=== PATIENT | female | born 1990 | race African-American/Black ===

== ENCOUNTER 2023-11-17 12:02 | Observation (INO) | payer MEDICAID, SELFPAY ==
[2023-11-17] VITALS (15 sets, daily range): BP systolic 104–146; BP diastolic 74–98; PULSE 58–84; RESP 13–21; TEMP 36.1–36.6; O2SAT 100; BMI 22.3
--- NOTE | ~2023-11-17 | XR_ITS ---
EXAMINATION: XR chest 2V DATE: 11/17/2023 13:20 INDICATION: Chest pain. TECHNIQUE: Frontal and lateral views of the chest were obtained. COMPARISON: None. FINDINGS: There is no pneumonia, pleural effusion, or pneumothorax. The heart size is normal. Surgica l clips in the right upper quadrant are likely from cholecystectomy. IMPRESSION: 1. No acute cardiopulmonary disease. Reviewed, dictated and finalized at location E. RUBBER MIXER
--- NOTE | 2023-11-17 12:04 | ECG_ITS ---
Measurements Intervals [place] Rate: 89 P: -47 IN: 138 QRS: 66 QRSD: 82 T: 23 QT: 343 QTc: 419 Interpretive Statements ECTOPIC ATRIAL RHYTHM ST ELEVATION CONSISTENT WITH INJURY, PERICARDITIS, OR EARLY REPOLARIZATION [ST ELEVATION W/O NORMALLY INFLECTED T WAVE] NONSPECIFIC ST & T-WAVE ABNORMALITY NO PREVIOUS ECG AVAILABLE FOR COMPARISON Electronically Signed On 11-17-2023 16:06:38 STREETCAR OPERATOR by Marleen Chavez M.D.
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
[2023-11-17 12:29] LABS: Basophils Percent Auto 0.7 % (0.2-1.2); Eosinophils Absolute Auto 0.2 K/mm3 (0-0.3); Eosinophils Percent Auto 3.3 % (0-4.4); Hematocrit 42.8 % (37.0-47.0); Hemoglobin 13.3 g/dL (12.0-15.0); Immature Granulocyte Absolute 0.01 K/mm3 (0.00-0.031); Immature Granulocyte Percent A 0.2 % (0-0.5); Lymphocytes Absolute Auto 1.87 K/mm3 (0.9-3.2); Lymphocytes Percent Auto 41.7 % (18.3-44.2); Mean Corpuscular HGB Conc 31.1 g/dl (32-36); Mean Corpuscular Hemoglobin 27.7 pg (26-34); Mean Platelet Volume 10.8 fl (7.4-10.4); Monocytes Absolute Auto 0.4 K/mm3 (0.1-0.6); Monocytes Percent Auto 9.8 % (2.6-8.5); Neutrophils Percent Auto 44.3 % (45.5-73.1); Platelet Count Result 337 k/mm3 (150-375); Red Blood Count 4.81 M/mm3 (4.2-5.4); Red Cell Distribution Width 14.3 % (11.5-14.5); White Blood Count 4.5 K/mm3 (4.5-10.0)
--- NOTE | 2023-11-17 12:34 | ECG_ITS ---
Measurements Intervals [place] Rate: 72 P: 58 SD: 160 QRS: 57 QRSD: 92 T: 38 QT: 389 QTc: 426 Interpretive Statements SINUS RHYTHM COMPARED TO ECG 11/17/2023 12:12:18 SINUS RHYTHM NOW PRESENT Electronically Signed On 11-17-2023 16:07:23 BASEBALL GLOVE SHAPER by Marleen Chavez M.D.
[2023-11-17 12:39] LABS: Alanine Aminotransferase 14 U/L (6-35); Albumin Level 4.3 g/dL (3.5-5.1); Alkaline Phosphatase 69 U/L (38-126); Anion Gap 9 mmol/L (8-16); Aspartate Amino Transferase 26 U/L (14-36); Bilirubin,Total 0.5 mg/dL (0.2-1.3); Blood Urea Nitrogen 6 mg/dL (7-17); Calcium 9.5 mg/dL (8.4-10.2); Carbon Dioxide 24 mmol/L (22-30); Chloride 107 mmol/L (98-107); Estimated CRCL calculation 96 ml/min; Estimated Glomerular Filt Rate > 60; Glucose 98 mg/dL (65-110); Lipase 83 U/L (23-300); Potassium 3.6 mmol/L (3.4-5.0); Sodium 140 mmol/L (137-145)
[2023-11-17] MEDS: ASPIRIN 81 MG CHEWABLE TABLET 324 MG PO (12:39)
[2023-11-17 12:41] LABS: Partial Thromboplastin Time 24.6 SECONDS (22.3-36.8)
[2023-11-17 12:50] LABS: Troponin I < 0.012 ng/mL (0.000-0.034)
[2023-11-17 14:26] LABS: Influenza A QL RT-PCR Negative (Negative); Influenza B QL RT-PCR Negative (Negative); RSV RNA, RT-PCR Negative (Negative); SARS-CoV-2 RNA PCR Negative (Negative)
[2023-11-17 15:01] LABS: Erythrocyte Sedimentation Rate 17 mm/hr (0-20)
--- NOTE | 2023-11-17 15:30 | ECG_ITS ---
Measurements Intervals [place] Rate: 59 P: 60 ID: 183 QRS: 66 QRSD: 90 T: 48 QT: 430 QTc: 426 Interpretive Statements SINUS BRADYCARDIA COMPARED TO ECG 11/17/2023 12:42:04 SINUS BRADYCARDIA NOW PRESENT Electronically Signed On 11-17-2023 16:09:59 QUALITY ASSURANCE QA LAB ANALYST by Marleen Chavez M.D.
[2023-11-17 16:39] LABS: Troponin I < 0.012 ng/mL (0.000-0.034)
--- NOTE | 2023-11-17 18:00 | ADMGEN ---
This patient, Tootie Meier, was admitted to IMU Room 202-. Patient/family oriented to hospital policies and general routines including ID bracelet, bed and alarms, visiting hours, pain management, procedures, bathroom and other care routines, personal items, smoking policy, room service/diet, and visiting hours. Information on how to activate the Rapid Response Team has been discussed. Patient/Family are encouraged to report perceived risks to care and to ask questions if they do not understand what they are told or what they should do.
[2023-11-17 18:47] LABS: Troponin I < 0.012 ng/mL (0.000-0.034)
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
[2023-11-17] MEDS: ACETAMINOPHEN 325 MG TABLET 650 MG PO (20:28)
[2023-11-17] MEDS: COLCHICINE 0.6 MG TABLET PO (20:28)
[2023-11-17 21:05] LABS: Troponin I < 0.012 ng/mL (0.000-0.034)
[2023-11-17] MEDS: ALPRAZolam (*CRX) 0.125 MG TABLET PO (23:38)
[2023-11-18] VITALS (15 sets, daily range): BP systolic 116–144; BP diastolic 73–92; PULSE 61–105; RESP 16–20; TEMP 36.4–37; O2SAT 98–100
--- NOTE | 2023-11-18 | ECHO_ITS ---
Patient Info Name: Tootie Meier Age: 33 years : 1990 Gender: Female Ht: 67 in Wt: 163 lbs BSA: 1.88 m2 HR: 66 bpm BP: 116 / 77 mmHg Heart Rhythm: Sinus Rhythm Technical Quality: Good Exam Date: 11/18/2023 12:01 PM Exam Location: Echo Lab Patient Status: Inpatient Admit Date: 11/17/2023 Staff Ordering Physician: Marleen Chvaez MD (yarelis/nanda) Practical Nursing Faculty: Ritika Huggins RDCS Attending Provider: Blade Flores MD Referring Physician: Scott LENTZ; Exam Type: CA echo doppler color flow Study Info Indications R07.9 - Chest pain, unspecified Complete two-dimensional, color flow and Doppler transthoracic echocardiogram is performed. Summary 1. Complete two-dimensional, color flow and Doppler transthoracic echocardiogram is performed. 2. Left ventricular chamber dimension is normal. 3. Left ventricular systolic function is normal, estimated at 60-65%. 4. Right ventricular systolic function is normal. 5. There is no pericardial effusion. Left Ventricle Left ventricular chamber dimension is normal. Left ventricular systolic function is normal, estimated at 60-65%. There is no increased left ventricular wall thickness. Right Ventricle Right ventricular chamber dimension is normal. Right ventricular systolic function is normal. Left Atria Left atrial chamber dimension is normal. Right Atria Right atrial chamber dimension is normal. Atrial Septum Intact interatrial septum visualized by color flow imaging. Aortic Valve The aortic valve is probable trileaflet. There is no aortic valve stenosis. There is no aortic valve regurgitation. Pulmonic Valve The pulmonic valve is not well visualized. Mitral Valve There is no mitral valve regurgitation. Tricuspid Valve There is no tricuspid valve regurgitation. Pericardium/Pleural There is no pericardial effusion. Inferior Vena Cava Normal inferior vena cava with <50% collapse upon inspiration consistent with elevated right atrial pressure, 8 mmHg. Aorta The aortic root size at the sinus of Valsalva is normal. Left Ventricular Outflow Tract Name Value Normal LVOT 2D LVOT Diameter 2.0 cm LVOT Doppler LVOT Peak Gradient 3 mmHg LVOT Mean Gradient 1 mmHg LVOT VTI 15 cm LVOT VTI/AV VTI Ratio 0.5 LVOT Stroke Volume 45 ml LVOT CO 2.9 l/min LVOT CI 1.6 l/min/m2 Pulmonic Valve Name Value Normal RVOT Doppler RVOT Peak Gradient 2 mmHg PV Doppler PV Peak Gradient 5 mmHg Mitral Valve Name Value Normal
[2023-11-18 05:09] LABS: Hematocrit 37.5 % (37.0-47.0); Hemoglobin 11.9 g/dL (12.0-15.0); Mean Corpuscular HGB Conc 31.7 g/dl (32-36); Mean Corpuscular Volume 88.2 fl (80-100); Platelet Count Result 305 k/mm3 (150-375); Red Blood Count 4.25 M/mm3 (4.2-5.4); White Blood Count 4.3 K/mm3 (4.5-10.0)
[2023-11-18 05:21] LABS: Anion Gap 8 mmol/L (8-16); Blood Urea Nitrogen 6 mg/dL (7-17); Calcium 8.8 mg/dL (8.4-10.2); Carbon Dioxide 23 mmol/L (22-30); Chloride 107 mmol/L (98-107); Estimated CRCL calculation 96 ml/min; Estimated Glomerular Filt Rate > 60; Glucose 91 mg/dL (65-110); Magnesium 2.1 mg/dL (1.6-2.3); Potassium 3.1 mmol/L (3.4-5.0); Sodium 138 mmol/L (137-145)
[2023-11-18 05:55] LABS: Beta HCG Quantitative < 2.39 mIU/ML
--- NOTE | 2023-11-18 09:22 | PM.IMPN ---
Progress Note: A&P Assessment and Plan (1) Pericarditis: Code(s): I31.9 - Disease of pericardium, unspecified Status: Acute Assessment and Plan: Appreciate cardiology consultation, started on ibuprofen and colchicine 11/17 (2) Chest pain: Code(s): R07.9 - Chest pain, unspecified Status: Acute Assessment and Plan: Likely secondary to viral pericarditis, however, ppi added due to possible dyspepsia contributing to chest pain (3) Abnormal EKG: Code(s): R94.31 - Abnormal electrocardiogram [ECG] [EKG] Status: Acute (4) Recent upper respiratory tract infection: Code(s): J06.9 - Acute upper respiratory infection, unspecified Status: Acute Assessment and Plan: Resolving, unsure of specific etiology Plan DVT prophylaxis with SCDs GI prophylaxis with PPI Code status full code Subjective Date/time seen: 11/18/23 09:22 Interval history: 33-year-old female with no significant past medical history is presenting with evaluation for chest pain thought to be secondary to viral pericarditis. No overnight events noted. No chest pain or shortness of breath. No nausea, vomiting or diarrhea. No fevers or chills. Patient states she feels much better today. Review of Systems Review of Systems: 12 point review of systems was assessed and was negative except as noted in the HPI Exam Narrative: General: No acute distress, alert and oriented per baseline HEENT: Atraumatic, normocephalic, mucous membranes moist CV: Regular rate and rhythm, S1, S2 Lungs: Clear to auscultation bilaterally, no rales or crackles noted, no wheezes, good air entry Abdomen: Soft, nontender, nondistended Extremities: Normal to inspection Skin: No rashes noted, no lesions or wounds seen Psych: Euthymic, normal affect Objective Data Vital Signs Vital Signs: Vital Signs - 24 hr 11/17/23 12:16 11/17/23 12:30 11/17/23 12:16 Temperature 97.6 F Pulse Rate 84 73 Respiratory Rate 20 16 Blood Pressure 127/87 104/85 Pulse Oximetry 100 100 Oxygen Delivery Room Air Room Air 11/17/23 12:30 11/17/23 13:00 11/17/23 13:01 Temperature Pulse Rate 73 65 61 Respiratory Rate 18 16 16 Blood Pressure 104/85 124/81 124/81 Pulse Oximetry 100 100 100 Oxygen Delivery 11/17/23 14:03 11/17/23 15:08 11/17/23 15:09 Temperature Pulse Rate 63 75 65 Respiratory Rate 15 21 H 13 Blood Pressure 130/78 135/96 H 135/96 H Pulse Oximetry 100 100 100 Oxygen Delivery 11/17/23 15:31 11/17/23 16:45 11/17/23 17:18 Temperature Pulse Rate 65 58 L 60 Respiratory Rate 14 15 16 Blood Pressure 146/98 H 122/90 122/90 Pulse Oximetry 100 100 100 Oxygen Delivery 11/17/23 17:59 11/17/23 18:00 11/17/23 18:00 Temperature 98 F Pulse Rate 61 75 Respiratory Rate 18 Blood Pressure 129/94 H Pulse Oximetry 100 Oxygen Delivery Room Air 11/17/23 19:41 11/17/23 20:00 11/17/23 22:00 Temperature 97.0 F L Pulse Rate 66 62 69 Respiratory Rate 18 Blood Pressure 142/74 H Pulse Oximetry 100 Oxygen Delivery 11/17/23 20:00 11/18/23 00:00 11/18/23 00:00 Temperature 97.8 F Pulse Rate 62 85 65 Respiratory Rate 18 20 Blood Pressure 144/92 H Pulse Oximetry 100 98 Oxygen Delivery Room Air 11/18/23 00:00 11/18/23 02:00 11/18/23 04:00 Temperature Pulse Rate 65 65 76 Respiratory Rate 20 Blood Pressure Pulse Oximetry 98 Oxygen Delivery Room Air 11/18/23 04:12 11/18/23 06:00 11/18/23 04:00 Temperature 97.8 F Pulse Rate 105 H 64 Respiratory Rate 19 Blood Pressure 118/82 Pulse Oximetry 100 Oxygen Delivery Room Air 11/18/23 07:44 Temperature 98.6 F Pulse Rate 73 Respiratory Rate 16 Blood Pressure 127/73 Pulse Oximetry 100 Oxygen Delivery Intake/Output Intake/Output: Intake & Output 11/15/23 11/16/23 11/17/23 11/18/23 23:59 23:59 23:59 23:59 Intake Total 440 Balance
[2023-11-18] MEDS: ASPIRIN 81 MG CHEWABLE TABLET PO (10:29)
[2023-11-18] MEDS: ACETAMINOPHEN 325 MG TABLET 650 MG PO (10:29)
[2023-11-18] MEDS: COLCHICINE 0.6 MG TABLET PO ×2 (10:30→21:55)
[2023-11-18] MEDS: PANTOPRAZOLE 40 MG TABLET PO (10:30)
[2023-11-18] MEDS: IBUPROFEN 600 MG TABLET PO ×3 (10:30→16:23)
--- NOTE | 2023-11-18 10:38 | PM.CNCAR ---
Assessment and Plan Assessment and plan (1) Chest pain: Code(s): R07.9 - Chest pain, unspecified Status: Acute Assessment and Plan: EKG without ischemic changes. Troponins are negative. Concern for pericarditis as patient had preceding viral symtpoms, however, ESR negative. Will check CRP and echocardiogram. If CRP negative, and echocardiogram without pericardial effusion, then would not be inclined to treat as acute pericarditis. Does have some reproducible chest wall tenderness. Agree with NSAID therapy for this. Also does have symptoms concerning for GERD as well. Agree with PPI. History of Present Illness History of Present Illness Consult date/time: 11/18/23 10:38 Requesting physician: Nathalie Ríos MD Consult reason: chest pain Reason For Visit: Ches Pain/Pericarditis Suspected Narrative: We are consulted for chest pain. This is a 33 year old female with marijuana use who presented with chest pain that has been occurring for the past week. Had URI symptoms about 2 weeks ago. One week ago, she developed sharp central chest pain. Chest pain improves when laying to her side, improves with sitting up. Worsens with deep inspiration. We were called by ER yesterday when initial EKG was obtained to see if it was a STEMI. However, did not appear to be STEMI. Appeared to be early repolarization vs possible pericarditis. Serial repeat EKGs without any ischemic changes. Troponins have all been negative. She was admitted for further evaluation and management. Started on Colchine and Ibuprofen on admission. ESR is negative. Review of Systems Review of Systems: All systems reviewed & are unremarkable except as noted in HPI and below (HPI) [facility] Past Medical History Medical History No significant medical problems Surgical History Surgical History History of cervical cerclage History of cholecystectomy History of incision and drainage Family History Family History Sibling Hypercholesteremia Hypertension Mother Hypercholesteremia Hypertension Grandparent Myocardial infarct Lung cancer Social History Social History Social History: Surrogate medical decision maker: Tanna Jacobson, mother. Code status: Full code. Smoking status: Never smoker Alcohol intake: never Substance use type: marijuana Do You Feel Safe in your Home?: Yes Lack of Transportation: No Lack of Food: Sometimes True Current Housing: I Do Not Have Housing Concerned About Future Housing: YES Difficulty Paying Gas/Electric Bills: YES Difficulty Paying for Meds: YES Currently Unemployed: YES Education: Decline to Answer Difficulty w/ Childcare or Family Care: No Spiritual care concerns: No Meds Home Medications and Allergies Home Medications Medication Instructions Recorded Confirmed Type No Home Medications 11/17/23 11/17/23 History Allergies Allergy/AdvReac Type Severity Reaction Status Date / Time No Known Allergies Allergy Verified 11/17/23 12:43 Vital Signs Vital Signs - 24 hr 11/17/23 12:16 11/17/23 12:30 11/17/23 12:16 Temperature 36.4 C Pulse Rate 84 73 Respiratory Rate 20 16 Blood Pressure 127/87 104/85 Pulse Oximetry 100 100 Oxygen Delivery Room Air Room Air 11/17/23 12:30 11/17/23 13:00 11/17/23 13:01 Temperature Pulse Rate 73 65 61 Respiratory Rate 18 16 16 Blood Pressure 104/85 124/81 124/81 Pulse Oximetry 100 100 100 Oxygen Delivery 11/17/23 14:03 11/17/23 15:08 11/17/23 15:09 Temperature Pulse Rate 63 75 65 Respiratory Rate 15 21 H 13 Blood Pressure 130/78 135/96 H 135/96 H Pulse Oximetry 100 100 100 Oxygen Delivery 11/17/23 15:31 11/17/23 16:45 11/17/23 17:18 Temperature Pulse Rate 65 58 L 60 Respiratory Ra
[2023-11-18 11:28] LABS: CRP < 0.5 mg/dL (<1.0)
[2023-11-18] MEDS: POTASSIUM CHLORIDE 20 MEQ ER TABLET 40 MEQ PO (15:56)
[2023-11-19] VITALS (10 sets, daily range): BP systolic 102–117; BP diastolic 67–89; PULSE 58–75; RESP 14–18; TEMP 36.1–37.3; O2SAT 100
[2023-11-19 04:30] LABS: Basophils Percent Auto 0.5 % (0.2-1.2); Eosinophils Absolute Auto 0.2 K/mm3 (0-0.3); Eosinophils Percent Auto 4.1 % (0-4.4); Hematocrit 38.4 % (37.0-47.0); Hemoglobin 12.2 g/dL (12.0-15.0); Immature Granulocyte Absolute 0.01 K/mm3 (0.00-0.031); Immature Granulocyte Percent A 0.3 % (0-0.5); Lymphocytes Absolute Auto 1.66 K/mm3 (0.9-3.2); Lymphocytes Percent Auto 42.2 % (18.3-44.2); Mean Corpuscular HGB Conc 31.8 g/dl (32-36); Mean Corpuscular Volume 88.3 fl (80-100); Monocytes Absolute Auto 0.4 K/mm3 (0.1-0.6); Monocytes Percent Auto 10.4 % (2.6-8.5); Neutrophils Absolute Auto 1.7 K/mm3 (1.3-6.7); Neutrophils Percent Auto 42.5 % (45.5-73.1); Platelet Count Result 305 k/mm3 (150-375); Red Blood Count 4.35 M/mm3 (4.2-5.4); Red Cell Distribution Width 13.9 % (11.5-14.5); White Blood Count 3.9 K/mm3 (4.5-10.0)
[2023-11-19 04:55] LABS: Alanine Aminotransferase 11 U/L (6-35); Albumin Level 3.7 g/dL (3.5-5.1); Alkaline Phosphatase 65 U/L (38-126); Anion Gap 6 mmol/L (8-16); Aspartate Amino Transferase 20 U/L (14-36); Bilirubin,Total 0.4 mg/dL (0.2-1.3); Blood Urea Nitrogen 5 mg/dL (7-17); Calcium 9.1 mg/dL (8.4-10.2); Carbon Dioxide 25 mmol/L (22-30); Chloride 108 mmol/L (98-107); Estimated CRCL calculation 96 ml/min; Estimated Glomerular Filt Rate > 60; Glucose 91 mg/dL (65-110); Potassium 3.7 mmol/L (3.4-5.0); Sodium 139 mmol/L (137-145)
[2023-11-19] MEDS: ONDANSETRON INJ 4 MG/2 ML VIAL IV PUSH ×2 (05:02→09:36)
[2023-11-19] MEDS: IBUPROFEN 600 MG TABLET PO ×2 (09:35→14:01)
[2023-11-19] MEDS: COLCHICINE 0.6 MG TABLET PO (09:35)
[2023-11-19] MEDS: ACETAMINOPHEN 325 MG TABLET 650 MG PO (09:35)
[2023-11-19] MEDS: PANTOPRAZOLE 40 MG TABLET PO (09:35)
[2023-11-19] MEDS: ASPIRIN 81 MG CHEWABLE TABLET PO (09:35)
--- NOTE | 2023-11-19 12:47 | PM.DS ---
DS: Admitting Diagnosis Discharge Date 11/19/23 Admitting Diagnosis chest pain DS: Discharge Diagnosis Discharge Diagnosis (1) Pericarditis: Code(s): I31.9 - Disease of pericardium, unspecified Status: Acute Assessment and Plan: Appreciate cardiology consultation, started on ibuprofen and colchicine 11/17 (2) Chest pain: Code(s): R07.9 - Chest pain, unspecified Status: Acute Assessment and Plan: Likely secondary to viral pericarditis, however, ppi added due to possible dyspepsia contributing to chest pain (3) Abnormal EKG: Code(s): R94.31 - Abnormal electrocardiogram [ECG] [EKG] Status: Acute (4) Recent upper respiratory tract infection: Code(s): J06.9 - Acute upper respiratory infection, unspecified Status: Acute Assessment and Plan: Resolving, unsure of specific etiology Plan DVT prophylaxis with SCDs GI prophylaxis with PPI Code status full code DS: Summary Hospital Course Hospital Course: 33-year-old female without significant medical history presented to the emergency department via private vehicle for evaluation of chest pain. EKG without ischemic changes. Troponins are negative. Concern for pericarditis as patient had preceding viral symptoms, however, ESR negative. Will check CRP and echocardiogram. If CRP negative, and echocardiogram without pericardial effusion, then would not be inclined to treat as acute pericarditis. Does have some reproducible chest wall tenderness. Also does have symptoms concerning for GERD as well. Agree with PPI. Refer to GI outpatient, likely needs EGD for possible PUD vs IBS vs ? See above and [facility] for details. Patient was discharged in stable condition with close outpatient follow up. Time Spent with Patient Time attestation: Total time spent providing and/or coordinating discharge services: Exam Narrative: General: No acute distress, alert and oriented per baseline HEENT: Atraumatic, normocephalic, mucous membranes moist CV: Regular rate and rhythm, S1, S2 Lungs: Clear to auscultation bilaterally, no rales or crackles noted, no wheezes, good air entry Abdomen: Soft, nontender, nondistended Extremities: Normal to inspection Skin: No rashes noted, no lesions or wounds seen Psych: Euthymic, normal affect DS: Data Data Completed and Pending Labs on day of discharge: Labs from last 24 hours 11/19/23 04:08 WBC 3.9 L RBC 4.35 Hgb 12.2 Hct 38.4 MCV 88.3 MCH 28.0 MCHC 31.8 L RDW 13.9 Plt Count 305 MPV 11.0 H Immature Gran % (Auto) 0.3 Neut % (Auto) 42.5 L Lymph % (Auto) 42.2 Treasure % (Auto) 10.4 H Eos % (Auto) 4.1 Baso % (Auto) 0.5 Lymph # (Auto) 1.66 [place] # (Auto) 0.4 Eos # (Auto) 0.2 Baso # (Auto) 0.0 Abs Immat Gran (auto) 0.01 Absolute Neuts (auto) 1.7 Absolute Nucleated RBC 0.0 Nucleated RBC % 0.0 Sodium 139 Potassium 3.7 Chloride 108 H Carbon Dioxide 25 Anion Gap 6 L BUN 5 L Creatinine 0.70 Estim Creat Clear Calc 96 Estimated GFR > 60 Glucose 91 Calcium 9.1 Total Bilirubin 0.4 AST 20 ALT 11 Alkaline Phosphatase 65 Total Protein 7.0 Albumin 3.7 Discharge Plan Discharge Attending physician on discharge: Gely Wallis Consulting providers: Marleen Chavez Discharging Clinician: Gely Wallis Patient Disposition: Home, Self-Care Activity: as tolerated Diet: as tolerated Discharge Instructions: You do not have any conditions with your heart, everything is normal. You should see a GI doctor for possible ulcers or irritable bowel syndrome. Patient Instructions: Antibiotic Form Stand Alone Forms: General Discharge Information Follow-up/Referrals: Sammy Richards MD [Physician] - UNKNOWN,DOCTOR [Primary Care Provider] - Discharge Medications: New pantoprazole 40 mg Tablet,Delayed Release (Dr/Ec) 40 mg PO QAM 30 Days Qty: 30 0RF Continued N
--- NOTE | 2023-11-19 12:49 | PM.PNCARD ---
Progress Note: A&P Assessment and Plan (1) Chest pain: Code(s): R07.9 - Chest pain, unspecified Status: Acute Assessment and Plan: EKG without ischemic changes. Troponins are negative. Unlikely to be pericarditis as ESR negative, CRP negative, and echo without any pericardial effusion; no other abnormality noted on echo. Can discontinue the Colchicine and Ibuprofen. Does have some reproducible chest wall tenderness. Can take Tylenol at home for this. Also does have symptoms concerning for GERD as well. Agree with PPI. Consider outpatient GI referral. Okay to discharge home from a Cardiology standpoint. Recommendations and plan discussed with Hospitalist. Subjective Date/time seen: 11/19/23 12:49 Interval history: Reason for visit: Chest pain HPI: We are consulted for chest pain. This is a 33 year old female with marijuana use who presented with chest pain that has been occurring for the past week. Had URI symptoms about 2 weeks ago. One week ago, she developed sharp central chest pain. Chest pain improves when laying to her side, improves with sitting up. Worsens with deep inspiration. We were called by ER yesterday when initial EKG was obtained to see if it was a STEMI. However, did not appear to be STEMI. Appeared to be early repolarization vs possible pericarditis. Serial repeat EKGs without any ischemic changes. Troponins have all been negative. She was admitted for further evaluation and management. Started on Colchine and Ibuprofen on admission. ESR is negative. Date of service 11/19: Feeling better. Has some abdominal pain that gets better when she goes to the bathroom. Tele without any arrhythmias. Review of Systems Review of Systems: All systems reviewed & are unremarkable except as noted in HPI and below (HPI) Exam Const: General: comfortable and no acute distress HENMT: Mouth: Yes moist mucous membranes Eyes: General: appearance normal, both eyes and all related structures Sclera: sclerae normal Neck: Neck: supple Resp: Effort & Inspection: normal respiratory effort Cardio: Rate: regular rate Rhythm: regular rhythm Skin: General skin exam: normal color Neuro: Speech: normal speech Psych: Mental Status: mental status grossly normal Affect: normal affect Objective Data Vital Signs Vital Signs: Vital Signs - 24 hr 11/18/23 14:00 11/18/23 16:00 11/18/23 16:00 Temperature 36.9 C Pulse Rate 80 61 70 Respiratory Rate 16 Blood Pressure 123/77 Pulse Oximetry 100 Oxygen Delivery 11/18/23 18:00 11/18/23 20:00 11/18/23 20:00 Temperature 36.4 C L Pulse Rate 76 64 64 Respiratory Rate 16 16 Blood Pressure 144/89 H Pulse Oximetry 100 100 Oxygen Delivery Room Air 11/18/23 20:00 11/18/23 22:00 11/19/23 00:28 Temperature 36.3 C L Pulse Rate 80 66 64 Respiratory Rate 16 Blood Pressure 117/89 Pulse Oximetry 100 Oxygen Delivery 11/19/23 00:00 11/19/23 02:00 11/19/23 04:00 Temperature Pulse Rate 58 L 61 64 Respiratory Rate Blood Pressure Pulse Oximetry Oxygen Delivery 11/19/23 04:00 11/19/23 05:58 11/19/23 07:36 Temperature 36.1 C L 36.9 C Pulse Rate 71 71 75 Respiratory Rate 16 18 Blood Pressure 114/78 102/80 Pulse Oximetry 100 100 Oxygen Delivery 11/19/23 08:00 11/19/23 08:00 11/19/23 10:00 Temperature Pulse Rate 75 64 71 Respiratory Rate 18 Blood Pressure Pulse Oximetry 100 Oxygen Delivery Room Air 11/19/23 11:51 11/19/23 12:00 Temperature 37.3 C Pulse Rate 65 63 Respiratory Rate 14 Blood Pressure 107/67 Pulse Oximetry 100 Oxygen Delivery Intake/Output Intake/Output: Intake & Output 11/16/23 11/17/23 11/18/23 11/19/23 23:59 23:59 23:59 23:59 Intake Total 440 720 720 Balance 440 720 720 Meds/Results Medications: Active Medications Generic Name Dose Route Start Last Admin Trade Name Freq PRN Reason Stop Dose Admin Acetaminophen 650 mg
[2023-11-19] MEDS: POTASSIUM CHLORIDE 20 MEQ ER TABLET 40 MEQ PO (14:01)
== END 2023-11-19 14:08 | disposition home or self-care (01) ==
LOC: ANHED 14:47 → ANHIMU 17:27
PROVIDERS: General Practice; Internal Medicine; Physician Assistant; Admitting Provider Family Medicine; Emergency Provider Emergency Medicine; Visit Provider Student in an Organized Health Care Education/Training Program
DX: I31.9 Disease of pericardium, unspecified (principal); R07.9 Chest pain, unspecified; R94.31 Abnormal electrocardiogram [ECG] [EKG]; J06.9 Acute upper respiratory infection, unspecified; R00.1 Bradycardia, unspecified; Z23 Encounter for immunization; Z20.822 Contact with and (suspected) exposure to COVID-19; I25.2 Old myocardial infarction; F17.210 Nicotine dependence, cigarettes, uncomplicated; F12.90 Cannabis use, unspecified, uncomplicated
CPT/HCPCS: 36415; 71046; 80048; 80053; 83690; 83735; 84484; 84702; 85025; 85027; 85610; 85652; 85730; 86140; 87637; 90471; 90686; 93005; 93306; 96374; 96376; 99285; A9270; G0008; G0378; G0379; J2405